=== PATIENT | male | born 1975 | race Caucasian/White ===

== ENCOUNTER 2018-03-25 13:48 | Observation (INO) ==
--- NOTE | 2018-03-25 13:58 | Emergency Department Note ---
ED Disposition Clinical Impression: Precordial chest pain, Bilateral flank pain Vomiting Qualifiers: Vomiting type: unspecified Vomiting Intractability: non-intractable Nausea presence: with nausea Qualified Code(s): R11.2 - Nausea with vomiting, unspecified Disposition: Still a Patient Condition on Discharge: Fair - Critical Care Critical Care Time: No Attestation: On , the high probability of a clinically significant, sudden or life threatening deterioration of the following system(s) required my full and direct attention, intervention and personal management. The time I documented below is in addition to time spent performing reported procedures but includes the following listed in this critical care notation. Medical Decision Making - Harry Inquiry Pt receiving controlled substance: No Vital Signs: 03/25/18 13:49 03/25/18 14:43 Temperature 97.4 F L Temperature Source Oral Pulse Rate [Left Radial] 89 88 Respiratory Rate 18 18 Blood Pressure [Right Arm] 126/72 123/64 Blood Pressure Mean [Right Arm] 90 83 Blood Pressure Source [Right Arm] Automatic Cuff Automatic Cuff Blood Pressure Position [Right Arm] Supine Sitting 02 Sat by Pulse Oximetry 99 98 Oxygen Delivery Method Room Air Room Air - Lab Data Lab Results 03/25/18 14:00: WBC 7.6, RBC 4.86, Hgb 12.6 L, Hct 41.5 L, MCV 85.3, MCH 26.0 L, MCHC 30.5 L, RDW 15.2, Plt Count 311, MPV 6.8 L, Neut % (Auto) 67.3, Lymph % (Auto) 24.4, [place] % (Auto) 6.0, Eos % (Auto) 1.3, Baso % (Auto) 1.0, Neut # (Auto) 5.1, Lymph # (Auto) 1.8, [place] # (Auto) 0.5, Eos # (Auto) 0.1, Baso # (Auto) 0.1 03/25/18 14:00: Sodium 126 L, Potassium 3.5, Chloride 110 H, Carbon Dioxide 29, Anion Gap -9.5 L, BUN 15, Creatinine 1.08, Estimated Creat Clear 134, Estimated GFR 74, Est GFR ( Amer) 90, Glucose 159 H, Calcium 8.7, Troponin I < 0.02 03/25/18 14:00: Lipase 204 03/25/18 14:00: Total Bilirubin 0.3, Direct Bilirubin 0.1, Indirect Bilirubin 0.2, AST 9 L, ALT 27, Alkaline Phosphatase 98, Total Protein 7.1, Albumin 3.2 L 03/25/18 14:45: Urine Color Yellow, Urine Appearance Clear, Urine pH 6.0, Ur Specific [place] 1.010, Urine Protein Negative, Urine Glucose (UA) 1+, Urine Ketones Negative, Urine Blood Negative, Urine Nitrate Negative, Urine Bilirubin Negative, Urine Urobilinogen 0.2, Ur Leukocyte Esterase Negative, Urine RBC None, Urine WBC Occasional, Ur Squamous Epith Cells None, Urine Bacteria None Result diagrams: 03/25/18 14:00 03/25/18 14:00 Orders (Tests/Meds): ORDERS Category Date Time Status CT abdomen pelvis wo con Stat Cat Scan 03/25/18 15:00 Taken Urinalysis and Microscopic Stat Lab 03/25/18 14:45 Ordered - Radiology Data #1 Image(s): Chest Image Reviewed: Yes I reviewed the patient's radiology image Preliminary Findings: Normal/NAD - CT Data CT Scan: Abdomen, Pelvis Time Received: 16:[address] Reviewed: Yes: I discussed the CT results w/the radiologist Findings Narrative: nothing acute - ECG Data Tracing #1 EKG interpreted by Aldair Max MD: Rhythm: sinus Rate: 86 [place]: normal Ectopy: none Conduction: normal ST Segment Changes: none T Wave Changes: none Q Waves: none No evidence of acute ischemia or injury Normal electrocardiogram - Physician Consults Physician Consulted: Aleida Time: 15:41 Reason -: Admission Comment/Response: Agrees to admit the patient to the hospital. We discussed the patient's clinical information, including history, exam, laboratory and radio logy results and ED course. Per hospital procedure, I will write temporary bridge inpatient orders on the patient. Specific orders requested by the admitting physician: Serial cardiac enzymes, cardiology consult General Adult HPI - General Chief complaint: Chest Pain Stated complaint: chest pain Time Seen by Provider: 03/25/18 13:58 Mode of Arrival: Ambulatory Limitations: No Limitations Description of Symptoms (Recalled from ER Triage Doc. by RN): Ems states that pt reported he has had chest pain for 2-3 days with pain radiating down both arms. He states that the pain is alot of pressure in nature and is constant. He reports that he has been throwing up today with pain in the side of his abdomen. Ems gave him 4 aspirin 81 mg, and nitro at 1339. - History of Present Illness HPI narrative: Poor historian. Brought in by ambulance from [facility] home with complaint of chest pain. Patient states that he has sternal chest pain and pain in both sides at the costal margins and flanks for 2 days. He said pain is constant. He has vomiting which started today. Slight shortness of breath. Mild abdominal pain. Denies cough or fever. Denies diarrhea or urinary symptoms. Says that he had the same symptoms a year ago and was told he had pneumonia. I have reviewed his hospital records and this is his first hospital visit here. States he thinks he had a cardiac cath a year or 2 ago at [facility]. Thinks it was negative. - Related Data Home Medications Medication Instructions Recorded Confirmed Aspirin [Aspirin 81mg chewable 81 mg PO DAILY 03/25/18 03/25/18 tab] Atorvastatin Calcium [Lipitor 40mg 40 mg PO DAILY 03/25/18 03/25/18 Tablet] Insulin Glargine,Hum.rec.anlog 100 unit SQ DAILY 03/25/18 03/25/18 [Lantus Insulin 100units/mL 10mL vial] Losartan Potassium [Cozaar] 100 mg PO DAILY 03/25/18 03/25/18 Metformin HCl [Metformin HCl ER] 500 mg PO DAILY 03/25/18 03/25/18 Pantoprazole Sodium [Protonix 40mg 40 mg PO DAILY 03/25/18 03/25/18 tablet] Pioglitazone HCl [Actos] 45 mg PO DAILY 03/25/18 03/25/18 Trazodone HCl 50 mg PO DAILY 03/25/18 03/25/18 hydrOXYzine pamoate [Vistaril] 50 mg PO DAILY 03/25/18 03/25/18 hydroCHLOROthiazide [HCTZ 25mg 25 mg PO DAILY 03/25/18 03/25/18 tab] Allergies Allergy/AdvReac Type Severity Reaction Status Date / Time acetaminophen [From Tylenol] Allergy Unknown Verified 03/25/18 14:08 azithromycin [From Zithromax] Allergy Unknown Verified 03/25/18 14:08 ibuprofen Allergy Unknown Verified 03/25/18 14:08 ketorolac [From Toradol] Allergy Unknown Verified 03/25/18 14:08 metronidazole [From Flagyl] Allergy Unknown Verified 03/25/18 14:08 Penicillins Allergy Unknown Verified 03/25/18 14:08 topiramate [From Topamax] Allergy Unknown Verified 03/25/18 14:08 tromethamine Allergy Unknown Verified 03/25/18 14:08 empagliflozin [From Glyxambi] Allergy Verified 03/25/18 14:08 linagliptin [From Glyxambi] Allergy Verified 03/25/18 14:08 [facility] History I have reviewed the patient's past medical history: Yes ROS Obtained: Yes All systems reviewed & no additional complaints - Constitutional Constitutional: Denies fever(s) - Cardiovascular Cardiovascular: Reports chest pain - Respiratory Respiratory: No cough, Yes dyspnea - Gastrointestinal Gastrointestingal: Reports: abdominal pain, vomiting. Denies: diarrhea - Genitourinary Male Genitourinary: Denies difficulty urinating Physical Exam - General General appearance: alert, in no apparent distress - Head Head exam: atraumatic, normocephalic, normal inspection - Eye Eye exam: Present: normal appearance, PERRL, EOMI - ENT ENT exam: Present: mucous membranes moist - Neck Neck exam: Present: normal inspection, trachea midline - Chest Chest inspection: Present: normal inspection, symmetric chest wall rise, tenderness (Sternal) - Respiratory Respiratory exam: Present: normal lung sounds bilaterally. Absent: respiratory distress - Cardiovascular Cardiovascular exam: Present: regular rate, normal rhythm, normal heart sounds. Absent: JVD - Abdominal Exam Abdominal exam: Present: soft, tenderness, normal bowel sounds. Absent: d istention, guarding Abdominal tenderness: Present: diffuse, mild - Extremities Exam Extremities exam: Present: normal inspection, other (Trace pretibial edema). Absent: calf tenderness - Neurological Exam Neurological exam: Present: alert - Psychiatric Psychiatric exam: Present: normal affect, normal mood - Skin Skin exam: Present: warm, dry, intact, normal color
[2018-03-25 14:19] LABS: Basophils # 0.1 K/mm3 (0-0.2); Eosinophils # 0.1 K/mm3 (0.0-0.4); Eosinophils % 1.3 % (0.1-12.0); Hematocrit 41.5 % (42.0-52.0); Hemoglobin 12.6 g/dL (14.1-18.0); Lymphocytes # 1.8 K/mm3 (0.7-4.5); Lymphocytes % 24.4 % (10-50); Mean Corpuscular HGB Conc 30.5 g/dL (31.8-35.4); Mean Corpuscular Volume 85.3 fl (80-94); Mean Platelet Volume 6.8 fl (7.4-10.4); Monocytes # 0.5 K/mm3 (0.1-1.0); Neutrophils # 5.1 K/mm3 (1.8-7.8); Neutrophils % 67.3 % (37.0-80.0); Platelet Count 311 K/mm3 (142-424); Red Blood Count 4.86 M/mm3 (4.60-6.20); Red Cell Distribution Width 15.2 % (11.5-17.5); White Blood Count 7.6 K/mm3 (4.8-10.8)
[2018-03-25 14:49] LABS: Anion Gap -9.5 mEq/L (5-15); Blood Urea Nitrogen 15 mg/dL (7-18); Calcium 8.7 mg/dL (8.5-10.1); Carbon Dioxide 29 mmol/L (21.0-32.0); Chloride 110 mmol/L (98-107); Glucose 159 mg/dL (74-106); Potassium 3.5 mmoL/L (3.5-5.1); Sodium 126 mmol/L (136-145)
[2018-03-25 14:50] LABS: Albumin Level 3.2 gm/dL (3.4-5.0); Bilirubin,Direct 0.1 mg/dL (0.0-0.2); Bilirubin,Indirect 0.2 mg/dL (0.0-0.9); Bilirubin,Total 0.3 mg/dL (0.2-1.0); Total Protein,Serum 7.1 gm/dL (6.4-8.2)
[2018-03-25 14:52] LABS: Microscopic, Urine URINE MICROSCOPIC (MICROSCOPIC)
[2018-03-25 14:56] LABS: Appearance,Urine CLEAR (Clear); Bilirubin,Urine Negative (Negative); Blood, Urine Negative (Negative); Color,Urine YELLOW (Yellow); Glucose,Urine (UA) 1+ (Negative); Ketones,Urine Negative (Negative); Leukocyte Esterase,Urine Negative (Negative); Protein,Urine Negative (Negative); Urobilinogen,Urine 0.2 EU/dl (0.2)
[2018-03-25 15:07] LABS: WBC,Urine Occasional #/hpf (0-3)
--- NOTE | 2018-03-25 20:52 | History & Physical Report ---
*Admission Date: 03/25/18 *Chief complaint: chest pain *History of present illness: this iddm was seen at [facility] this afternoon -pt has had chest pain described to me as sharp with rad to both upper ext over the last 2 days - pt was sent to ed for eval-escription of Symptoms (Recalled from ER Triage Doc. by RN): Ems states that pt reported he has had chest pain for 2-3 days with pain radiating down both arms. He states that the pain is alot of pressure in nature and is constant. He reports that he has been throwing up today with pain in the side of his abdomen. Ems gave him 4 aspirin 81 mg, and nitro at 1339. - History of Present Illness HPI narrative: Poor historian. Brought in by ambulance from [facility] with complaint of chest pain. Patient states that he has sternal chest pain and pain in both sides at the costal margins and flanks for 2 days. He said pain is constant. He has vomiting which started today. Slight shortness of breath. Mild abdominal pain. Denies cough or fever. Denies diarrhea or urinary symptoms. Says that he had the same symptoms a year ago and was told he had pneumonia. I have reviewed his hospital records and this is his first hospital visit here. States he thinks he had a cardiac cath a year or 2 ago at [facility]. Thinks it was negative. pt was admitted for card eval [facility] History I have reviewed the patient's past medical history: Yes Medical History: Reports:: Diabetes Mellitus Type 2, Hyperlipidemia, Hypertension - *Social History Smoking Status: Never smoker Tobacco Type: cigarettes Alcohol Intake: never Occupational Status: disabled Housing: assisted living facility Household Members: other - Psychiatric History Expresses thoughts of harming self/others: None Suicide Plan Description: No Plan *Family Hx:: Unable to obtain Review of Systems - Review of Systems Review of systems:: pertinent systems reviewed and negative unless documented below - Constitutional Denies headache(s) - Eyes Denies change in vision - ENT Denies sore throat - *Cardiovascular Reports chest pain, Denies leg swelling - *Respiratory Denies cough - *Gastrointestinal Denies abdominal pain - *Genitourinary Denies blood in urine - *Musculoskeletal Denies joint pain - Integumentary/Breasts Denies rash - *Neurologic Denies seizure-like activity - Psychiatric Denies anxiety Meds Home Medications Medication Instructions Recorded Confirmed Type Albuterol Sulfate [Albuterol HFA 1 puff IH Q4-6H 03/25/18 03/25/18 History Inhaler] Aspirin [Aspirin 81mg chewable 81 mg PO DAILY 03/25/18 03/25/18 History tab] Atorvastatin Calcium [Lipitor 40mg 40 mg PO DAILY 03/25/18 03/25/18 History Tablet] Cholecalciferol (Vitamin D3) 4,000 unit PO DAILY 03/25/18 03/25/18 History [Vitamin D3] Fluticasone/Salmeterol [Advair 1 puff IH BID 03/25/18 03/25/18 History 500/50mcg diskus] Insulin Aspart [Novolog Flexpen] 40 unit SQ TID 03/25/18 03/25/18 History Insulin Glargine,Hum.rec.anlog 75 unit SQ HS 03/25/18 03/25/18 History [Lantus Insulin 100units/mL 10mL vial] Loratadine/Pseudoephedrine 1 each PO DAILY 03/25/18 03/25/18 History [Loratadine-D 24Hr Tablet] Losartan Potassium [Cozaar] 100 mg PO DAILY 03/25/18 03/25/18 History Metformin HCl [Metformin HCl ER] 1,000 mg PO BID 03/25/18 03/25/18 History Metoprolol Succinate [Toprol XL 50 mg PO DAILY 03/25/18 03/25/18 History 50mg Tablet] Montelukast Sodium [Montelukast 10 mg PO HS 03/25/18 03/25/18 History 10mg Tab] Pantoprazole Sodium [Protonix 40mg 40 mg PO DAILY 03/25/18 03/25/18 History tablet] Pioglitazone HCl [Actos] 45 mg PO DAILY 03/25/18 03/25/18 History Trazodone HCl 50 mg PO DAILY 03/25/18 03/25/18 History hydrOXYzine pamoate [Vistaril] 25 mg PO TID PRN 03/25/18 03/25/18 History hydroCHLOROthiazide [HCTZ 25mg 25 mg PO DAILY 03/25/18 03/25/18 History tab] Allergies Allergy/AdvReac Type Severity Reaction Status Date / Time acetaminophen [From Tylenol] Allergy Unknown Verified 03/25/18 14:08 azithromycin [From Zithromax] Allergy Unknown Verified 03/25/18 14:08 ibuprofen Allergy Unknown Verified 03/25/18 14:08 ketorolac [From Toradol] Allergy Unknown Verified 03/25/18 14:08 metronidazole [From Flagyl] Allergy Unknown Verified 03/25/18 14:08 Penicillins Allergy Unknown Verified 03/25/18 14:08 topiramate [From Topamax] Allergy Unknown Verified 03/25/18 14:08 tromethamine Allergy Unknown Verified 03/25/18 14:08 empagliflozin [From Glyxambi] Allergy Verified 03/25/18 14:08 linagliptin [From Glyxambi] Allergy Verified 03/25/18 14:08 Exam Vital signs and Labs for Last 24 Hours: Temp Pulse Resp BP Pulse Ox 98.5 F 82 18 141/88 H 100 03/25/18 16:57 03/25/18 16:57 03/25/18 16:57 03/25/18 16:57 03/25/18 16:57 Laboratory Results - last 24 hr 03/25/18 14:00: WBC 7.6, RBC 4.86, Hgb 12.6 L, Hct 41.5 L, MCV 85.3, MCH 26.0 L, MCHC 30.5 L, RDW 15.2, Plt Count 311, MPV 6.8 L, Neut % (Auto) 67.3, Lymph % (Auto) 24.4, [place] % (Auto) 6.0, Eos % (Auto) 1.3, Baso % (Auto) 1.0, Neut # (Auto) 5.1, Lymph # (Auto) 1.8, [place] # (Auto) 0.5, Eos # (Auto) 0.1, Baso # (Auto) 0.1 03/25/18 14:00: Sodium 126 L, Potassium 3.5, Chloride 110 H, Carbon Dioxide 29, Anion Gap -9.5 L, BUN 15, Creatinine 1.08, Estimated Creat Clear 134, Estimated GFR 74, Est GFR ( Amer) 90, Glucose 159 H, Calcium 8.7, Troponin I < 0.02 03/25/18 14:00: Lipase 204 03/25/18 14:00: Total Bilirubin 0.3, Direct Bilirubin 0.1, Indirect Bilirubin 0.2, AST 9 L, ALT 27, Alkaline Phosphatase 98, Total Protein 7.1, Albumin 3.2 L 03/25/18 14:45: Urine Color Yellow, Urine Appearance Clear, Urine pH 6.0, Ur Specific [place] 1.010, Urine Protein Negative, Urine Glucose (UA) 1+, Urine Ketones Negative, Urine Blood Negative, Urine Nitrate Negative, Urine Bilirubin Negative, Urine Urobilinogen 0.2, Ur Leukocyte Esterase Negative, Urine RBC None, Urine WBC Occasional, Ur Squamous Epith Cells None, Urine Bacteria None 03/25/18 16:29: POC Glucose 118 H 03/25/18 19:15: Troponin I < 0.02 I & O for Last 24 hours: Intake & Output 03/23/18 03/24/18 03/25/18 03/26/18 11:59 11:59 11:59 11:59 Intake Total 480 / 480 Balance 480 / 480 Weight 295 lb 8 oz - Constitutional no acute distress, obese - *Routine HEENT Exam Head: Present: normocephalic Eye: Present: EOMI, PERRL ENT: Present: mucous membranes dry - *Routine Neck Exam Present: supple - *Routine Respiratory Exam Present: CTA bilaterally - *Routine Cardiovascular Exam Present: RRR, murmur - *Routine Abdominal Exam Present: soft - *Routine Extremities Exam Present: cyanosis - *Routine Skin Exam Present: intact - *Routine Neurological Exam Present: alert, oriented X3, CN II-XII intact - Routine Psychiatric Exam Present: normal affect Assessment and Plan (1) Obesity Current visit: Yes Status: Acute Category: Medical Code(s): E66.9 - Obesity, unspecified (2) Precordial chest pain Current visit: Yes Status: Acute Category: Medical Code(s): R07.2 - Precordial pain (3) Diabetes mellitus, insulin dependent (IDDM), controlled Current visit: Yes Status: Acute Category: Medical Code(s): E11.9 - Type 2 diabetes mellitus without complications; Z79.4 - MCFP (current) use of insulin
[2018-03-26 06:56] LABS: Anion Gap 10.1 mEq/L (5-15); Calcium 8.7 mg/dL (8.5-10.1); Potassium 4.1 mmoL/L (3.5-5.1)
--- NOTE | 2018-03-26 07:26 | Pharmacy Consult Notes ---
[facility] Pharmacy VTE Monitoring - Patient Demographics Admission date: 03/25/18 Report Date: 03/26/18 Time: 07:26 Allergies/Adverse Reactions: Patient Allergies acetaminophen [From Tylenol] Allergy (Unknown, Verified 03/25/18 14:08) azithromycin [From Zithromax] Allergy (Unknown, Verified 03/25/18 14:08) ibuprofen Allergy (Unknown, Verified 03/25/18 14:08) ketorolac [From Toradol] Allergy (Unknown, Verified 03/25/18 14:08) metronidazole [From Flagyl] Allergy (Unknown, Verified 03/25/18 14:08) Penicillins Allergy (Unknown, Verified 03/25/18 14:08) topiramate [From Topamax] Allergy (Unknown, Verified 03/25/18 14:08) tromethamine Allergy (Unknown, Verified 03/25/18 14:08) empagliflozin [From Glyxambi] Allergy (Verified 03/25/18 14:08) linagliptin [From Glyxambi] Allergy (Verified 03/25/18 14:08) Height: 1.75 m Weight: 134.037 kg Patient Problems: Current Active Problems Precordial chest pain (Acute) Vomiting (Acute) Bilateral flank pain (Acute) Obesity (Acute) Diabetes mellitus, insulin dependent (IDDM), controlled (Acute) - VTE Risk Labs: VTE Related Lab Results Hgb 12.6 g/dL (14.1-18.0) L 03/25/18 14:00 Hct 41.5 % (42.0-52.0) L 03/25/18 14:00 Plt Count 311 K/mm3 (142-424) 03/25/18 14:00 BUN 17 mg/dL (7-18) 03/26/18 06:45 Creatinine 0.97 mg/dL (0.70-1.30) 03/26/18 06:45 Estimated Creat Clear 97 mL/min (50-200) 03/26/18 06:45 Was VTE Risk Assessment Performed: Yes VTE Score: 3 VTE Risk Level: Low Risk - Prophylaxis VTE Prophylaxis Ordered?: Yes Types of VTE Prophylaxis: TEDS Knee High Location of Applied Device: Bilateral Lower Extremeties - VTE Diagnosis Confirmed Treatment or plan recommended: Continue Current Treatment
--- NOTE | 2018-03-26 07:44 | Consult Report ---
Addendum entered and electronically signed by KUNAL De Los Santos 03/26/18 15:07: Cardiac cath, 01/2017, showed no CAD. GXT today, walked for just over 3 min to 75% of target HR without chest pain, ST segment changes or arrhyhtmias. Preliminary echo shows normal LVEF without signficant valve abnormalities. Ok to discharge home from cardiology standpoint. Original Note: History of Present Illness Consult date: 03/26/18 Requesting physician: Claus Shin Consult reason: chest pain Chief complaint: Chest pain, palpitations Additional Medical History:: 1. Diabetes mellitus, insulin requiring 2. Hypertension 3. Hyperlipidemia 4. History of cardiac catheterization, normal LVEF, no evidence of CAD, 01/2017. [facility], Dr. Mahesh Armenta 5. Obesity History of present illness: 43-year-old white male resident of [facility] admitted for recurrent episode of chest discomfort. He describes it as a sharp pressure sensation that occurs while walking and feels as if his heart is racing. Symptoms resolved when he lies down. Due to recurrent nature of the symptoms with progression over the last couple of days patient was admitted for further evaluation. Troponins have returned normal. EKG is sinus without acute ST segment changes. He does have some early repolarization changes. Reportedly had same symptoms approximately 1-2 years ago for which he underwent cardiac catheterization and reportedly was normal. [facility] History Medical History: Reports:: Diabetes Mellitus Type 2, Hyperlipidemia, Hypertension - *Social History Smoking Status: Never smoker Tobacco Type: cigarettes Alcohol Intake: never Occupational Status: disabled Housing: assisted living facility Household Members: other - Psychiatric History Expresses thoughts of harming self/others: None Suicide Plan Description: No Plan *Family Hx:: Unable to obtain Meds Home Medications Medication Instructions Recorded Confirmed Type Albuterol Sulfate [Albuterol HFA 1 puff IH Q4HP PRN 03/25/18 03/26/18 History Inhaler] Aspirin [Aspirin 81mg chewable 81 mg PO DAILY 03/25/18 03/25/18 History tab] Atorvastatin Calcium [Lipitor 40mg 40 mg PO DAILY 03/25/18 03/25/18 History Tablet] Cholecalciferol (Vitamin D3) 4,000 unit PO DAILY 03/25/18 03/25/18 History [Vitamin D3] Insulin Aspart [Novolog Flexpen] 40 unit SQ TID 03/25/18 03/25/18 History Insulin Glargine,Hum.rec.anlog 75 unit SQ HS 03/25/18 03/25/18 History [Lantus Insulin 100units/mL 10mL vial] Losartan Potassium [Cozaar] 100 mg PO DAILY 03/25/18 03/25/18 History Metformin HCl [Metformin HCl ER] 1,000 mg PO BID 03/25/18 03/25/18 History Metoprolol Succinate [Toprol XL 50 mg PO DAILY 03/25/18 03/25/18 History 50mg Tablet] Montelukast Sodium [Montelukast 10 mg PO HS 03/25/18 03/25/18 History 10mg Tab] Pantoprazole Sodium [Protonix 40mg 40 mg PO BID 03/25/18 03/26/18 History tablet] Pioglitazone HCl [Actos] 45 mg PO DAILY 03/25/18 03/25/18 History Trazodone HCl 50 mg PO HSP PRN 03/25/18 03/26/18 History hydrOXYzine pamoate [Vistaril] 25 mg PO TID PRN 03/25/18 03/25/18 History hydroCHLOROthiazide [HCTZ 25mg 25 mg PO DAILY 03/25/18 03/25/18 History tab] Dextrose [Glutose 37.5gm Oral Gel] 1 tube MC NEEDED PRN 03/26/18 03/26/18 History Fluticasone/Salmeterol 1 puff IH BID 03/26/18 03/26/18 History [Fluticasone/Salmeterol 250/50mcg diskus] Loratadine [Claritin] 10 mg PO DAILY 03/26/18 03/26/18 History Allergies Allergy/AdvReac Type Severity Reaction Status Date / Time acetaminophen [From Tylenol] Allergy Unknown Verified 03/25/18 14:08 azithromycin [From Zithromax] Allergy Unknown Verified 03/25/18 14:08 ibuprofen Allergy Unknown Verified 03/25/18 14:08 ketorolac [From Toradol] Allergy Unknown Verified 03/25/18 14:08 metronidazole [From Flagyl] Allergy Unknown Verified 03/25/18 14:08 Penicillins Allergy Unknown Verified 03/25/18 14:08 topiramate [From Topamax] Allergy Unknown Verified 03/25/18 14:08 tromethamine Allergy Unknown Verified 03/25/18 14:08 empagliflozin [From Glyxambi] Allergy Verified 03/25/18 14:08 linagliptin [From Glyxambi] Allergy Verified 03/25/18 14:08 Review of Systems - *Cardiovascular Reports chest pain, Reports shortness of breath with activity - *Respiratory Reports shortness of breath with activity - *Gastrointestinal Denies abdominal pain - *Genitourinary Denies blood in urine - *Musculoskeletal Denies joint pain, Denies back pain - *Neurologic Denies seizure-like activity, Denies headache(s) Exam Vital signs and Labs for Last 24 Hours: Temp Pulse Resp BP Pulse Ox 98.0 F 77 16 122/67 100 03/26/18 04:00 03/26/18 04:00 03/26/18 04:00 03/26/18 04:00 03/26/18 04:00 Laboratory Results - last 24 hr 03/25/18 14:00: WBC 7.6, RBC 4.86, Hgb 12.6 L, Hct 41.5 L, MCV 85.3, MCH 26.0 L, MCHC 30.5 L, RDW 15.2, Plt Count 311, MPV 6.8 L, Neut % (Auto) 67.3, Lymph % (Auto) 24.4, [place] % (Auto) 6.0, Eos % (Auto) 1.3, Baso % (Auto) 1.0, Neut # (Auto) 5.1, Lymph # (Auto) 1.8, [place] # (Auto) 0.5, Eos # (Auto) 0.1, Baso # (Auto) 0.1 03/25/18 14:00: Sodium 126 L, Potassium 3.5, Chloride 110 H, Carbon Dioxide 29, Anion Gap -9.5 L, BUN 15, Creatinine 1.08, Estimated Creat Clear 134, Estimated GFR 74, Est GFR ( Amer) 90, Glucose 159 H, Calcium 8.7, Troponin I < 0.02 03/25/18 14:00: Lipase 204 03/25/18 14:00: Total Bilirubin 0.3, Direct Bilirubin 0.1, Indirect Bilirubin 0.2, AST 9 L, ALT 27, Alkaline Phosphatase 98, Total Protein 7.1, Albumin 3.2 L 03/25/18 14:45: Urine Color Yellow, Urine Appearance Clear, Urine pH 6.0, Ur Specific [place] 1.010, Urine Protein Negative, Urine Glucose (UA) 1+, Urine Ketones Negative, Urine Blood Negative, Urine Nitrate Negative, Urine Bilirubin Negative, Urine Urobilinogen 0.2, Ur Leukocyte Esterase Negative, Urine RBC None, Urine WBC Occasional, Ur Squamous Epith Cells None, Urine Bacteria None 03/25/18 16:29: POC Glucose 118 H 03/25/18 19:15: Troponin I < 0.02 03/25/18 20:35: POC Glucose 214 H 03/25/18 22:16: Troponin I < 0.02 03/26/18 06:22: POC Glucose 164 H 03/26/18 06:45: Sodium 137, Potassium 4.1, Chloride 100, Carbon Dioxide 31, Anion Gap 10.1, BUN 17, Creatinine 0.97, Estimated Creat Clear 97, Estimated GFR 84, Est GFR ( Amer) 102, Glucose 177 H, Calcium 8.7 I & O for Last 24 hours: Intake & Output 03/23/18 03/24/18 03/25/18 03/26/18 11:59 11:59 11:59 11:59 Intake Total 730 / 730 Balance 730 / 730 Weight 295 lb 8 oz - *Routine Neck Exam Present: supple. Absent: JVD, carotid bruit - *Routine Respiratory Exam Present: CTA bilaterally. Absent: accessory muscle use, rales, rhonchi, wheezes - *Routine Cardiovascular Exam Present: RRR. Absent: murmur, gallop, rubs - *Routine Abdominal Exam Present: soft. Absent: tenderness, distended, guarding - *Routine Extremities Exam Present: edema. Absent: calf tenderness - *Routine Neurological Exam Present: alert, oriented X3, moving all extremities Assessment and Plan (1) Precordial chest pain Current visit: Yes Status: Acute Category: Medical Code(s): R07.2 - Precordial pain (2) Obesity Current visit: Yes Status: Acute Category: Medical Code(s): E66.9 - Obesity, unspecified (3) Diabetes mellitus, insulin dependent (IDDM), controlled Current visit: Yes Status: Acute Category: Medical Code(s): E11.9 - Type 2 diabetes mellitus without complications; Z79.4 - detention (current) use of insulin (4) Hypertension Current visit: Yes Status: Acute Category: Medical Code(s): I10 - Essential (primary) hypertension - Assessment and plan all Dx Assessment and Plan for all problems:: 1. We will try to obtain recent cardiac catheterization results from [facility]. 2. Patient relates symptoms of palpitations when ambulating along with the chest discomfort. Since cardiac catheter report last year shows no CAD with normal LVEF, will proceed with routine Steve protocol stress test with no imaging to assess for exercise-induced arrhythmias.. 3. Will obtain an echocardiogram to evaluate left ventricular size and valve status. 4. Further recommendations to follow.
--- NOTE | 2018-03-26 13:33 | Discharge Summary ---
General - General Admission date:: 03/25/18 Discharge date: 03/26/18 HPI HPI: this iddm was seen at intermediate this afternoon -pt has had chest pain described to me as sharp with rad to both upper ext over the last 2 days - pt was sent to ed for eval-escription of Symptoms (Recalled from ER Triage Doc. by RN): Ems states that pt reported he has had chest pain for 2-3 days with pain radiating down both arms. He states that the pain is alot of pressure in nature and is constant. He reports that he has been throwing up today with pain in the side of his abdomen. Ems gave him 4 aspirin 81 mg, and nitro at 1339. - History of Present Illness HPI narrative: Poor historian. Brought in by ambulance from [facility] with complaint of chest pain. Patient states that he has sternal chest pain and pain in both sides at the costal margins and flanks for 2 days. He said pain is constant. He has vomiting which started today. Slight shortness of breath. Mild abdominal pain. Denies cough or fever. Denies diarrhea or urinary symptoms. Says that he had the same symptoms a year ago and was told he had pneumonia. I have reviewed his hospital records and this is his first hospital visit here. States he thinks he had a cardiac cath a year or 2 ago at [facility]. Thinks it was negative. pt was admitted for card eval Hospital Course Hospital Course: CT abdomen chest normal Chest x-ray normal Cardiology consult see note Stress test nothing abnormal. We will discharge back to [facility] today with a follow-up with cardiology and Dr. Shin. Objective Vital signs: Temp Pulse Resp BP Pulse Ox 97.7 F 90 20 124/83 96 03/26/18 11:34 03/26/18 13:13 03/26/18 11:34 03/26/18 11:34 03/26/18 11:34 no acute distress - *Routine HEENT Exam Head: Present: normocephalic Eye: Present: PERRL ENT: Present: mucous membranes moist - *Routine Neck Exam Present: supple - *Routine Respiratory Exam Present: CTA bilaterally - *Routine Cardiovascular Exam Present: RRR - *Routine Abdominal Exam Present: soft, normoactive bowel sounds - *Routine Extremities Exam Present: full ROM - *Routine Skin Exam Present: intact - *Routine Neurological Exam Present: alert, oriented X3 - Routine Psychiatric Exam Present: normal affect Results Labs on day of discharge: Labs from last 24 hours 03/26/18 03/26/18 03/26/18 11:17 06:45 06:22 WBC RBC Hgb Hct MCV MCH MCHC RDW Plt Count MPV Neut % (Auto) Lymph % (Auto) [place] % (Auto) Eos % (Auto) Baso % (Auto) Neut # (Auto) Lymph # (Auto) [place] # (Auto) Eos # (Auto) Baso # (Auto) Sodium 137 Potassium 4.1 Chloride 100 Carbon Dioxide 31 Anion Gap 10.1 BUN 17 Creatinine 0.97 Estimated Creat Clear 97 Estimated GFR 84 Est GFR ( Amer) 102 Glucose 177 H POC Glucose 192 H 164 H Calcium 8.7 Total Bilirubin Direct Bilirubin Indirect Bilirubin AST ALT Alkaline Phosphatase Troponin I Total Protein Albumin Lipase Urine Color Urine Appearance Urine pH Ur Specific [place] Urine Protein Urine Glucose (UA) Urine Ketones Urine Blood Urine Nitrate Urine Bilirubin Urine Urobilinogen Ur Leukocyte Esterase Urine RBC Urine WBC Ur Squamous Epith Cells Urine Bacteria 03/25/18 03/25/18 03/25/18 22:16 20:35 19:15 WBC RBC Hgb Hct MCV MCH MCHC RDW Plt Count MPV Neut % (Auto) Lymph % (Auto) [place] % (Auto) Eos % (Auto) Baso % (Auto) Neut # (Auto) Lymph # (Auto) [place] # (Auto) Eos # (Auto) Baso # (Auto) Sodium Potassium Chloride Carbon Dioxide Anion Gap BUN Creatinine Estimated Creat Clear Estimated GFR Est GFR ( Amer) Glucose POC Glucose 214 H Calcium Total Bilirubin Direct Bilirubin Indirect Bilirubin AST ALT Alkaline Phosphatase Troponin I < 0.02 < 0.02 Total Protein Albumin Lipase Urine Color Urine Appearance Urine pH Ur Specific [place] Urine Protein Urine Glucose (UA) Urine Ketones Urine Blood Urine Nitrate Urine Bilirubin Urine Urobilinogen Ur Leukocyte Esterase Urine RBC Urine WBC Ur Squamous Epith Cells Urine Bacteria 03/25/18 03/25/18 03/25/18 16:29 14:45 14:00 WBC RBC Hgb Hct MCV MCH MCHC RDW Plt Count MPV Neut % (Auto) Lymph % (Auto) [place] % (Auto) Eos % (Auto) Baso % (Auto) Neut # (Auto) Lymph # (Auto) [place] # (Auto) Eos # (Auto) Baso # (Auto) Sodium Potassium Chloride Carbon Dioxide Anion Gap BUN Creatinine Estimated Creat Clear Estimated GFR Est GFR ( Amer) Glucose POC Glucose 118 H Calcium Total Bilirubin 0.3 Direct Bilirubin 0.1 Indirect Bilirubin 0.2 AST 9 L ALT 27 Alkaline Phosphatase 98 Troponin I Total Protein 7.1 Albumin 3.2 L Lipase Urine Color Yellow Urine Appearance Clear Urine pH 6.0 Ur Specific [place] 1.010 Urine Protein Negative Urine Glucose (UA) 1+ Urine Ketones Negative Urine Blood Negative Urine Nitrate Negative Urine Bilirubin Negative Urine Urobilinogen 0.2 Ur Leukocyte Esterase Negative Urine RBC None Urine WBC Occasional Ur Squamous Epith Cells None Urine Bacteria None 03/25/18 03/25/18 03/25/18 14:00 14:00 14:00 WBC 7.6 RBC 4.86 Hgb 12.6 L Hct 41.5 L MCV 85.3 MCH 26.0 L MCHC 30.5 L RDW 15.2 Plt Count 311 MPV 6.8 L Neut % (Auto) 67.3 Lymph % (Auto) 24.4 [place] % (Auto) 6.0 Eos % (Auto) 1.3 Baso % (Auto) 1.0 Neut # (Auto) 5.1 Lymph # (Auto) 1.8 [place] # (Auto) 0.5 Eos # (Auto) 0.1 Baso # (Auto) 0.1 Sodium 126 L Potassium 3.5 Chloride 110 H Carbon Dioxide 29 Anion Gap -9.5 L BUN 15 Creatinine 1.08 Estimated Creat Clear 134 Estimated GFR 74 Est GFR ( Amer) 90 Glucose 159 H POC Glucose Calcium 8.7 Total Bilirubin Direct Bilirubin Indirect Bilirubin AST ALT Alkaline Phosphatase Troponin I < 0.02 Total Protein Albumin Lipase 204 Urine Color Urine Appearance Urine pH Ur Specific [place] Urine Protein Urine Glucose (UA) Urine Ketones Urine Blood Urine Nitrate Urine Bilirubin Urine Urobilinogen Ur Leukocyte Esterase Urine RBC Urine WBC Ur Squamous Epith Cells Urine Bacteria - Additional Comments rounded with kristy all orders per kristy DS: Diagnosis - Discharge Diagnosis (1) Precordial chest pain Status: Acute (2) Obesity Status: Acute (3) Diabetes mellitus, insulin dependent (IDDM), controlled Status: Acute (4) Hypertension Status: Acute Discharge Plan - Patient Discharge Instructions ACTIVITY: Continue current activity DIET: continue same diet Patient Instructions: DI for Chest Pain - Follow up Plan Follow up with: Claus Shin MD [Primary Care Provider] - 1 week Jae Mancera MD [Staff Physician] - 1 week Disposition: Home, Self-Long Term Medications: Home Medications Medication Instructions Recorded Confirmed Type Albuterol Sulfate [Albuterol HFA 1 puff IH Q4HP PRN 03/25/18 03/26/18 History Inhaler] Aspirin [Aspirin 81mg chewable 81 mg PO DAILY 03/25/18 03/25/18 History tab] Atorvastatin Calcium [Lipitor 40mg 40 mg PO DAILY 03/25/18 03/25/18 History Tablet] Cholecalciferol (Vitamin D3) 4,000 unit PO DAILY 03/25/18 03/25/18 History [Vitamin D3] Insulin Aspart [Novolog Flexpen] 40 unit SQ TID 03/25/18 03/25/18 History Insulin Glargine,Hum.rec.anlog 75 unit SQ HS 03/25/18 03/25/18 History [Lantus Insulin 100units/mL 10mL vial] Losartan Potassium [Cozaar] 100 mg PO DAILY 03/25/18 03/25/18 History Metformin HCl [Metformin HCl ER] 1,000 mg PO BID 03/25/18 03/25/18 History Metoprolol Succinate [Toprol XL 50 mg PO DAILY 03/25/18 03/25/18 History 50mg Tablet] Montelukast Sodium [Montelukast 10 mg PO HS 03/25/18 03/25/18 History 10mg Tab] Pantoprazole Sodium [Protonix 40mg 40 mg PO BID 03/25/18 03/26/18 History tablet] Pioglitazone HCl [Actos] 45 mg PO DAILY 03/25/18 03/25/18 History Trazodone HCl 50 mg PO HSP PRN 03/25/18 03/26/18 History hydrOXYzine pamoate [Vistaril] 25 mg PO TID PRN 03/25/18 03/25/18 History hydroCHLOROthiazide [HCTZ 25mg 25 mg PO DAILY 03/25/18 03/25/18 History tab] Dextrose [Glutose 37.5gm Oral Gel] 1 tube MC NEEDED PRN 03/26/18 03/26/18 History Fluticasone/Salmeterol 1 puff IH BID 03/26/18 03/26/18 History [Fluticasone/Salmeterol 250/50mcg diskus] Loratadine [Claritin] 10 mg PO DAILY 03/26/18 03/26/18 History Prescriptions/Medication Reconciliation: Continue Atorvastatin Calcium [Lipitor 40mg Tablet] 40 mg PO DAILY Trazodone HCl 50 mg PO HSP PRN PRN Reason: Sleep Insulin Glargine,Hum.rec.anlog [Lantus Insulin 100units/mL 10mL vial] 75 unit SQ HS hydrOXYzine pamoate [Vistaril] 25 mg PO TID PRN PRN Reason: Anxiety Pioglitazone HCl [Actos] 45 mg PO DAILY Pantoprazole Sodium [Protonix 40mg tablet] 40 mg PO BID Metformin HCl [Metformin HCl ER] 1,000 mg PO BID Losartan Potassium [Cozaar] 100 mg PO DAILY Metoprolol Succinate [Toprol XL 50mg Tablet] 50 mg PO DAILY Montelukast Sodium [Montelukast 10mg Tab] 10 mg PO HS Albuterol Sulfate [Albuterol HFA Inhaler] 1 puff IH Q4HP PRN PRN Reason: SHORTNESS OF AIR Cholecalciferol (Vitamin D3) [Vitamin D3] 4,000 unit PO DAILY Fluticasone/Salmeterol [Fluticasone/Salmeterol 250/50mcg diskus] 1 puff IH BID Dextrose [Glutose 37.5gm Oral Gel] 1 tube MC NEEDED PRN PRN Reason: LOW BLOOD SUGAR hydroCHLOROthiazide [HCTZ 25mg tab] 25 mg PO DAILY Aspirin [Aspirin 81mg chewable tab] 81 mg PO DAILY Insulin Aspart [Novolog Flexpen] 40 unit SQ TID Loratadine [Claritin] 10 mg PO DAILY
--- NOTE | 2018-03-26 15:28 | Cardiology Report ---
PROCEDURE: 2-D M-mode and color Doppler study INDICATIONS FOR THE TEST: Chest pain+ COPD Heart Murmur Tobacco Smoking Palpitations Fatigue Syncope Edema Hypertension+Diabetes Mellitus+ Rheumatic Fever SOB+RIOS Obesity+Hyperlipidemia+ Family History HD Additional History PATIENT INFORMATION HEIGHT: 69 WEIGHT:295 GENDER: Male B/P:141/88 2-D/M-MODE INTERPRETATION: 2-D MEASUREMENTS OBSERVED VALUES IN CMS Right Ventricular Dimension (RVDd) 1.6 Interventricular Septum (Thickness)(IVsd) 1.5 Left Ventricular Internal Dimensions(LVIDd) 4.8 Left Ventricular Posterior Wall (Thickness)(LVPWd) 0.8 Aortic Root 3.6 Aortic Cusp Separation 2.2 Left Atrial Dimensions (LAD) 4.3 2D 1. Technically difficult study because of the patient's factor and poor acoustic windows, repeat study with Definity contrast is recommended. 2. The left atrium is mildly enlarged, left ventricle is normal size, mild concentric left ventricular hypertrophy, probably preserved left ventricular systolic function, visually estimated ejection fraction is 55%, endocardial surfaces are very poorly visualized. 3. The right atrium and right ventricle are normal size and contractility. 4. The aortic valve is minimally thickened and fibrosed. 5. The pulmonic valve is poorly visualized. 6. No significant pericardial effusion noted. DOPPLER INTERROGATION: Doppler interrogation of the aortic, mitral and tricuspid valvular presence of mild mitral and tricuspid regurgitation, tricuspid regurgitation jet velocity is inadequate for calculation of the right ventricular systolic pressure, grade 1 diastolic dysfunction seen with tissue Doppler evidence of raised left atrial pressure. CONCLUSION: 1. Technically difficult study because of the patient's factor and poor acoustic windows, repeat study with Definity contrast is recommended. 2. Mildly enlarged left atrium, normal left ventricular size, mild concentric left ventricular hypertrophy, probably preserved left ventricular systolic function, visually estimated ejection fraction of 55%, endocardial surfaces are very poorly visualized. Grade 1 diastolic dysfunction seen with tissue Doppler evidence of raised left atrial pressure. 3. Mild mitral and tricuspid regurgitation 4. No significant pericardial effusion noted.
== END 2018-03-26 16:00 | disposition home or self-care (01) ==
LOC: 2ND 13:48 → ER 13:48 → 2ND 16:32
PROVIDERS: ADMIT Emergency Medicine; ATTEND Emergency Medicine
CPT/HCPCS: 36415; 71010; 71045; 74176; 80048; 80076; 81001; 82962; 83690; 84484; 85025; 93005; 93017; 93306; 99284; G0378

== ENCOUNTER → 2018-04-17 09:05 | Outpatient (CLI) | payer MEDICARE, MEDICAID, SELFPAY ==
[2018-04-17 09:46] LABS: Blood Urea Nitrogen 14 mg/dL (7-18); Creatinine,Serum 1.06 mg/dL (0.70-1.30); Estimated Glomerular Filt Rate 76 ml/min (>60); GFR (African American) 92 ML/MIN (>60)
--- NOTE | 2018-04-17 09:54 | XR_ITS ---
EXAM: XR cervical spine min 6V HISTORY: Shakiness ITS.REASON: . ORDERING PHYSICIAN: Jae Mancera MD PATIENT AGE: 43 years COMPARISON: None FINDINGS: Normal alignment. No fracture or dislocation. No lytic or blastic change. There is mild degenerative disc disease at C5-C6 with small anterior osteophytes at C4-C5 and C5-C6. The foramina are widely patent. C6 and C7 are not well visualized. There is nuchal ligament calcification IMPRESSION: Mild cervical spondylosis, no acute finding
--- NOTE | 2018-04-17 09:54 | CT_ITS ---
CT angio chest HISTORY: Shortness of air and chest pain ITS.REASON: . ORDERING PHYSICIAN: Jae Mancera MD PATIENT AGE: 43 years COMPARISON: None TECHNIQUE: Axial images obtained following the administration of 75 mL of Isovue 370 . Sagittal, and coronal reformatted images are also generated and reviewed. All CT scans at the facility use one or more dose reduction, viz: automated exposure control, ma/kV adjustment per patient size (including targeted exams where dose is matched to indication, i.e. head), or iterative reconstruction technique. FINDINGS: No mediastinal or hilar mass is evident. No evidence of aortic aneurysm or dissection. No evidence of pulmonary embolus. There is a small amount of gas present in the mid and lower esophagus which may be related to reflux. The lungs are clear. No infiltrates or suspicious nodules evident. There is mild cardiomegaly. Upper abdominal images are unremarkable. There are mild degenerative changes in the thoracic spine IMPRESSION: No acute finding with no evidence of pulmonary embolus or aortic aneurysm.
== END ==
PROVIDERS: Visit Provider Internal Medicine
DX: R06.00 Dyspnea, unspecified (principal); R07.9 Chest pain, unspecified; R20.0 Anesthesia of skin
CPT/HCPCS: 36415; 71275; 72052; 82565; 84520; Q9967

== ENCOUNTER → 2018-06-18 20:07 | Outpatient (CLI) | payer MEDICARE, MEDICAID, SELFPAY | PROVIDERS: PCP Emergency Medicine; Visit Provider Emergency Medicine | DX: G47.33 Obstructive sleep apnea (adult) (pediatric) (principal); R40.0 Somnolence; R06.83 Snoring; E66.9 Obesity, unspecified | CPT/HCPCS: 95810 ==

== ENCOUNTER → 2018-08-17 10:18 | Outpatient (CLI) | payer MEDICARE, MEDICAID, SELFPAY ==
--- NOTE | 2018-08-17 10:21 | NVE_ITS ---
Venous Exam Indications: 729.81 Swelling of limb. IMPRESSIONS No evidence of deep or superficial vein thrombosis involving the veins of the right upper extremity Right upper extremity venous duplex. Doppler flow study including spectral analysis, color and navarrete scale imaging. Location: Vascular laboratory. Patient status: Outpatient. CRITICAL FINDINGS - Reported to: Dr Stone - 08/17/2018 - 10:40am - Neg for DVT Tables: Venous flow and imaging: + + + Location Flow properties + + + Right internal jugular Normal phasicity; spontaneous; compressible + + + Right subclavian Normal phasicity; spontaneous; normal augmentation; compressible + + + Right axillary Normal phasicity; spontaneous; normal augmentation; compressible + + + Right brachial Normal phasicity; spontaneous; normal augmentation; compressible + + + Right cephalic Normal phasicity; spontaneous; normal augmentation; compressible + + + Right basilic Normal phasicity; spontaneous; normal augmentation; compressible + + + Right radial Compressible + + + Right ulnar Compressible + + + Left subclavian Normal phasicity; spontaneous; normal augmentation; compressible + + + (Report amended ) Electronically signed by: Christian Villafana [id number]
--- NOTE | 2018-08-17 10:40 | XR_ITS ---
XR hand RT min 3V HISTORY: ITS.REASON: right hand pain/swelling ORDERING PHYSICIAN: Zahida Stone MD PATIENT AGE: 43 years COMPARISON: None FINDINGS: No obvious fracture or dislocation. The joint spaces are well-preserved. No bony erosive process evident at the joints. There is vague area of decreased attenuation involving the proximal shaft of the fifth medical carpal. There is some trabecular thickening also in this region. This is of questionable clinical significance. Consider follow-up to confirm stability. This could even represent an area of old fracture. IMPRESSION: 1. No acute finding. 2. Nonspecific lucency proximal shaft of the fifth metacarpal possibly due to an old fracture. Suggest follow-up in 2-3 months to confirm stability
== END ==
PROVIDERS: PCP Emergency Medicine; Visit Provider Specialist
DX: I82.621 Acute embolism and thrombosis of deep veins of right upper extremity (principal); M79.641 Pain in right hand; M79.89 Other specified soft tissue disorders; R20.0 Anesthesia of skin
CPT/HCPCS: 73130; 93971

== ENCOUNTER → 2018-08-19 13:17 | Outpatient (CLI) | payer MEDICARE, MEDICAID, SELFPAY ==
--- NOTE | 2018-08-19 13:22 | XR_ITS ---
XR wrist RT min 3V HISTORY posttraumatic pain ITS.REASON: right wrist pain, swelling, fall ORDERING PHYSICIAN: Zahida Stone MD PATIENT AGE: 43 years Comparison: None FINDINGS: No fracture or dislocation. No lytic or blastic change. There is normal mineralization.. The joint spaces are well-preserved. No significant degenerative/arthritic changes. No erosive changes evident.. IMPRESSION: Negative wrist
== END ==
PROVIDERS: PCP Emergency Medicine; Visit Provider Specialist
DX: M79.641 Pain in right hand (principal); M79.89 Other specified soft tissue disorders; R20.0 Anesthesia of skin
CPT/HCPCS: 73110

== ENCOUNTER → 2018-09-28 14:24 | Outpatient (POV) | payer MEDICARE, MEDICAID, SELFPAY | PROVIDERS: Visit Provider Specialist | DX: M79.641 Pain in right hand (principal); R20.0 Anesthesia of skin | CPT/HCPCS: 95886; 95908 ==

== ENCOUNTER → 2018-10-08 20:20 | Outpatient (CLI) | payer MEDICARE, MEDICAID, SELFPAY | PROVIDERS: PCP Emergency Medicine; Visit Provider Nurse Practitioner Family | DX: G47.33 Obstructive sleep apnea (adult) (pediatric) (principal); R07.9 Chest pain, unspecified; R06.02 Shortness of breath; R40.0 Somnolence | CPT/HCPCS: 95811 ==

== ENCOUNTER 2018-10-09 16:40 | Emergency (ER) | payer MEDICARE, MEDICAID, SELFPAY ==
[2018-10-09 16:47] VITALS: BP 130/79; PULSE 94; RESP 18; TEMP 36.8; O2SAT 99; BMI 43.9
--- NOTE | 2018-10-09 16:53 | HMH.EDGENADL ---
ED Disposition Clinical Impression: Suicidal ideation Disposition: Xfer Short-Term Hosp Condition on Discharge: Good Additional Instructions: pt transported by law enforcement Referrals: Provider,Referral, [Referring] - - Critical Care Critical Care Time: No Attestation: On 10/09/18, the high probability of a clinically significant, sudden or life threatening deterioration of the following system(s) required my full and direct attention, intervention and personal management. The time I documented below is in addition to time spent performing reported procedures but includes the following listed in this critical care notation. Medical Decision Making - Medical Records Medical records reviewed: Yes: I reviewed the patient's medical records. - Harry Inquiry Pt receiving controlled substance: No Vital Signs: 10/09/18 16:47 Temperature 98.2 F Temperature Source Oral Pulse Rate [Left Radial] 94 H Respiratory Rate 18 Blood Pressure [Right Arm] 130/79 Blood Pressure Mean [Right Arm] 96 Blood Pressure Source [Right Arm] Automatic Cuff Blood Pressure Position [Right Arm] Sitting 02 Sat by Pulse Oximetry 99 Oxygen Delivery Method Room Air - Lab Data Lab results reviewed: Yes: I reviewed the patient's lab results. Lab Results 10/09/18 17:00: Urine Opiates Screen Negative, Urine Methadone Screen Negative, Ur Barbituates Screen Negative, Ur Phencyclidine Scrn Negative, Ur Amphetamines Screen Negative, U Benzodiazepines Scrn Negative, Urine Cocaine Screen Negative, U Marijuana (THC) Screen Negative 10/09/18 17:31: WBC 8.3, RBC 5.17, Hgb 13.7 L, Hct 42.3, MCV 81.8, MCH 26.6 L, MCHC 32.5, RDW 14.3, Plt Count 340, MPV 6.7 L, Neut % (Auto) 67.9, Lymph % (Auto) 22.7, [place] % (Auto) 8.2, Eos % (Auto) 0.5, Baso % (Auto) 0.8, Neut # (Auto) 5.6, Lymph # (Auto) 1.9, [place] # (Auto) 0.7, Eos # (Auto) 0.0, Baso # (Auto) 0.1 10/09/18 17:31: Sodium 138, Potassium 3.8, Chloride 100, Carbon Dioxide 28, Anion Gap 13.8, BUN 16, Creatinine 1.23, Estimated Creat Clear 74, Estimated GFR 64, Est GFR ( Amer) 77, Glucose 133 H, Calcium 8.6, Total Bilirubin 0.2, AST 13 L, ALT 32, Alkaline Phosphatase 107, Total Protein 7.5, Albumin 3.4, Globulin 4.1 H, Albumin/Globulin Ratio 0.8 L, Salicylates 1.4 L, Plasma/Serum Alcohol 0 Result diagrams: 10/09/18 17:31 10/09/18 17:31 Orders (Tests/Meds): ORDERS Category Date Time Status ECG Request by /Nse Stat Y 10/09/18 16:58 Ordered - ECG Data Tracing #1 I reviewed this ECG and interpreted as documented below: Normal Sinus Rhythm: Yes (no stemi, normal QTc) Medical Decision Narrative: pt accepted by Dr Brown at [facility] for psych placement, vss General Adult HPI - General Stated complaint: psych Time Seen by Provider: 10/09/18 16:54 Source of Information: Patient - History of Present Illness HPI narrative: pt with suicidal ideation today, no attempt, no hallucinations, alert and oriented, speech fluent, good eye contact, no pain - Related Data Home Medications Medication Instructions Recorded Confirmed Albuterol Sulfate [Albuterol HFA 1 puff IH Q4HP PRN 03/25/18 09/28/18 Inhaler] Aspirin [Aspirin 81mg chewable 81 mg PO DAILY 03/25/18 09/28/18 tab] Atorvastatin Calcium [Lipitor 40mg 40 mg PO DAILY 03/25/18 09/28/18 Tablet] Cholecalciferol (Vitamin D3) 4,000 unit PO DAILY 03/25/18 09/28/18 [Vitamin D3] Insulin Aspart [Novolog Flexpen] 40 unit SQ TID 03/25/18 09/28/18 Insulin Glargine,Hum.rec.anlog 75 unit SQ HS 03/25/18 09/28/18 [Lantus Insulin 100units/mL 10mL vial] Losartan Potassium [Cozaar] 100 mg PO DAILY 03/25/18 09/28/18 Metformin HCl [Metformin ER 1,000 mg PO BID 03/25/18 09/28/18 Osmotic] Metoprolol Succinate [Toprol XL 50 mg PO DAILY 03/25/18 09/28/18 50mg Tablet] Montelukast Sodium [Montelukast 10 mg PO HS 03/25/18 09/28/18 10mg Tab] Pantoprazole Sodium [Protonix 40mg
--- NOTE | 2018-10-09 16:57 | ED_ITS ---
ED Disposition Clinical Impression: Suicidal ideation Disposition: Xfer Short-Term Hosp Condition on Discharge: Good Additional Instructions: pt transported by law enforcement Referrals: Provider,Referral, [Referring] - - Critical Care Critical Care Time: No Attestation: On 10/09/18, the high probability of a clinically significant, sudden or life threatening deterioration of the following system(s) required my full and direct attention, intervention and personal management. The time I documented below is in addition to time spent performing reported procedures but includes the following listed in this critical care notation. Medical Decision Making - Medical Records Medical records reviewed: Yes: I reviewed the patient's medical records. - Harry Inquiry Pt receiving controlled substance: No Vital Signs: 10/09/18 16:47 Temperature 98.2 F Temperature Source Oral Pulse Rate [Left Radial] 94 H Respiratory Rate 18 Blood Pressure [Right Arm] 130/79 Blood Pressure Mean [Right Arm] 96 Blood Pressure Source [Right Arm] Automatic Cuff Blood Pressure Position [Right Arm] Sitting 02 Sat by Pulse Oximetry 99 Oxygen Delivery Method Room Air - Lab Data Lab results reviewed: Yes: I reviewed the patient's lab results. Lab Results 10/09/18 17:00: Urine Opiates Screen Negative, Urine Methadone Screen Negative, Ur Barbituates Screen Negative, Ur Phencyclidine Scrn Negative, Ur Amphetamines Screen Negative, U Benzodiazepines Scrn Negative, Urine Cocaine Screen Negative, U Marijuana (THC) Screen Negative 10/09/18 17:31: WBC 8.3, RBC 5.17, Hgb 13.7 L, Hct 42.3, MCV 81.8, MCH 26.6 L, MCHC 32.5, RDW 14.3, Plt Count 340, MPV 6.7 L, Neut % (Auto) 67.9, Lymph % (Auto) 22.7, [place] % (Auto) 8.2, Eos % (Auto) 0.5, Baso % (Auto) 0.8, Neut # (Aut o) 5.6, Lymph # (Auto) 1.9, [place] # (Auto) 0.7, Eos # (Auto) 0.0, Baso # (Auto) 0.1 10/09/18 17:31: Sodium 138, Potassium 3.8, Chloride 100, Carbon Dioxide 28, Anion Gap 13.8, BUN 16, Creatinine 1.23, Estimated Creat Clear 74, Estimated GFR 64, Est GFR ( Amer) 77, Glucose 133 H, Calcium 8.6, Total Bilirubin 0.2, AST 13 L, ALT 32, Alkaline Phosphatase 107, Total Protein 7.5, Albumin 3.4, Globulin 4.1 H, Albumin/Globulin Ratio 0.8 L, Salicylates 1.4 L, Plasma/Serum Alcohol 0 Result diagrams: 10/09/18 17:31 10/09/18 17:31 Orders (Tests/Meds): ORDERS Category Date Time Status ECG Request by /Nse Stat Y 10/09/18 16:58 Ordered - ECG Data Tracing #1 I reviewed this ECG and interpreted as documented below: Normal Sinus Rhythm: Yes (no stemi, normal QTc) Medical Decision Narrative: pt accepted by Dr Brown at [facility] for psych placement, vss General Adult HPI - General Stated complaint: psych Time Seen by Provider: 10/09/18 16:54 Source of Information: Patient - History of Present Illness HPI narrative: pt with suicidal ideation today, no attempt, no hallucinations, alert and oriented, speech fluent, good eye contact, no pain - Related Data Home Medications Medication Instructions Recorded Confirmed Albuterol Sulfate [Albuterol HFA 1 puff IH Q4HP PRN 03/25/18 09/28/18 In
--- NOTE | 2018-10-09 17:17 | PC.NURSE ---
EMS BROUGHT PT FROM [facility] THAT IS A RESIDENT AT [facility] PT HAS BEEN HAVING SUCIDAL THOUGHTS ALL DAY , [facility] HAS ARRANGED A BED AT [facility] BUT EMS WAS NOT ABLE TO TRANSPORT TO [facility] I CALLED AND SPOKE WITH SANDY SHE ADVISED THEY WANTED US TO GO AHEAD AND CLEAR PT THEN HE WILL BE A DIRECT ADMIT . THEY HAVE SPOKE WITH HIS GUARDIAN AND AFTER HE IS CLEARED WE JUST NEED TO CALL REPORT . THE ACCEPTING IS DR FULTON . LAB HERE DRAWING LABS AT THIS TIME
[2018-10-09 17:22] LABS: Amphetamine/Metha Screen,Urine Negative ng/mL (<1000); Barbiturates Screen,Urine Negative ng/mL (<200); Benzodiazepines Screen,Urine Negative ng/mL (<200); Cannabinoid Screen,Urine Negative ng/mL (<50); Cocaine Screen,Urine Negative ng/mL (<300); Methadone Screen,Urine Negative ng/mL (<300); Opiate Screen,Urine Negative ng/mL (<300); Phencyclidine Screen,Urine Negative ng/mL (<25)
[2018-10-09 17:46] LABS: Basophils # 0.1 K/mm3 (0-0.2); Basophils % 0.8 % (0.1-2.0); Eosinophils % 0.5 % (0.1-12.0); Hematocrit 42.3 % (42.0-52.0); Hemoglobin 13.7 g/dL (14.1-18.0); Lymphocytes # 1.9 K/mm3 (0.7-4.5); Lymphocytes % 22.7 % (10-50); Mean Corpuscular HGB Conc 32.5 g/dL (31.8-35.4); Mean Corpuscular Hemoglobin 26.6 pg (27.0-31.2); Mean Corpuscular Volume 81.8 fl (80-94); Mean Platelet Volume 6.7 fl (7.4-10.4); Monocytes # 0.7 K/mm3 (0.1-1.0); Monocytes % 8.2 % (1.7-9.3); Neutrophils # 5.6 K/mm3 (1.8-7.8); Neutrophils % 67.9 % (37.0-80.0); Platelet Count 340 K/mm3 (142-424); Red Blood Count 5.17 M/mm3 (4.60-6.20); Red Cell Distribution Width 14.3 % (11.5-17.5); White Blood Count 8.3 K/mm3 (4.8-10.8)
[2018-10-09 18:17] LABS: Alanine Aminotransferase 32 U/L (12-78); Albumin Level 3.4 gm/dL (3.4-5.0); Albumin/Globulin Ratio 0.8 (1.1-1.8); Alkaline Phosphatase 107 U/L (46-116); Anion Gap 13.8 mEq/L (5-15); Aspartate Amino Transferase 13 U/L (15-37); Bilirubin,Total 0.2 mg/dL (0.2-1.0); Blood Urea Nitrogen 16 mg/dL (7-18); Calcium 8.6 mg/dL (8.5-10.1); Carbon Dioxide 28 mmol/L (21.0-32.0); Chloride 100 mmol/L (98-107); Creatinine Clearance Estimated 74 mL/min (50-200); Creatinine,Serum 1.23 mg/dL (0.70-1.30); Estimated Glomerular Filt Rate 64 ml/min (>60); GFR (African American) 77 ML/MIN (>60); Globulin 4.1 gm/dl (1.3-3.2); Glucose 133 mg/dL (74-106); Potassium 3.8 mmoL/L (3.5-5.1); Salicylate 1.4 mg/dL (2.8-20.0); Sodium 138 mmol/L (136-145); Total Protein,Serum 7.5 gm/dL (6.4-8.2)
[2018-10-09 18:23] LABS: Ethyl Alcohol 0 mg/dL (0-99)
[2018-10-09 18:46] VITALS: BP 138/77; PULSE 91; RESP 16; TEMP 36.7; O2SAT 100
[2018-10-09 18:52] LABS: Appearance,Urine CLEAR (Clear); Bilirubin,Urine Negative (Negative); Blood, Urine Negative (Negative); Color,Urine YELLOW (Yellow); Glucose,Urine (UA) 3+ (Negative); Ketones,Urine Negative (Negative); Leukocyte Esterase,Urine Negative (Negative); Microscopic, Urine URINE MICROSCOPIC (MICROSCOPIC); Nitrate,Urine Negative (Negative); Protein,Urine 1+ (Negative); Urobilinogen,Urine 0.2 EU/dl (0.2)
[2018-10-09 18:56] LABS: Amorphous Sediment,Urine Trace /lpf; Mucus,Urine 4+ /lpf; Sperm,Urine 1+ /lpf
== END 2018-10-09 18:48 | disposition short-term general hospital (02) ==
PROVIDERS: Emergency Provider Emergency Medicine Emergency Medical Services; PCP Emergency Medicine
DX: R45.851 Suicidal ideations (principal); F32.9 Major depressive disorder, single episode, unspecified; E11.9 Type 2 diabetes mellitus without complications; J45.909 Unspecified asthma, uncomplicated; E78.5 Hyperlipidemia, unspecified; I10 Essential (primary) hypertension; R56.9 Unspecified convulsions; Z88.8 Allergy status to other drugs, medicaments and biological substances; Z79.899 Other long term (current) drug therapy
CPT/HCPCS: 80053; 80305; 80329; 81001; 85025; 93005; 99282

== ENCOUNTER 2018-12-08 11:00 | Outpatient (RCR) | payer MEDICARE, MEDICAID, SELFPAY ==
--- NOTE | 2019-03-04 11:14 | HMH.OTOPEV ---
OT Inpatient Evaluation Rehab OT Outpatient Eval Start: 10/20/18 13:47 Freq: Status: Discharge Protocol: Document 10/20/18 13:47 TFRY (Rec: 10/20/18 14:00 TFRY [id number]) Electronically Signed By Brii Snell, OT 10/20/18 13:47 Outpatient Therapy Subjective History Subjective History This is a 43 year old right handed male referred to occupational therapy evaluation for carpal tunnel syndrome. Patient reports initially injurying his wrist approximately 1 year ago when he attempted to lift a treadmill. Chief Complaint Pain Symptom Type Numbness Symptoms Relieved By Nothing Symptoms Aggravated By Physical Activity Prior Functional Limitations None Current Functional Limitations Sleeping Symptom Description Constant but Variable Level of pain today (0-10) 3 Pain scale - at its best (0-10) 2 Pain scale - at its worst (0-10) 10 Wrist/Hand Eval Wrist Range of Motion Right Wrist ROM Reason Not Measured Within Functional Limits Wrist Manual Muscle Testing Right Wrist Extension Strength Grade 3+ Fair+ Wrist Flexion Strength Grade 4- Good- Wrist Radial Deviation Strength Grade 3+ Fair+ Wrist Ulnar Deviation Strength Grade 3+ Fair+ 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 Strength Measurement (lbs) 38 Palmar Pinch (3-point) Ability Normal Performance Palmar Pinch (3-point) Strength 8 Measurement (lbs) Tip Pinch (2-point) Ability Normal Performance Tip Pinch (2-point) Strength Measurement 6 (lbs) Lateral Pinch Ability Normal Performance Lateral Pinch Strength Measurement (lbs) 12 OT Outpatient Assessment Impairments Problems/Impairments Impaired Strength,Subjective C /O Pain Prognosis Rehab Potential Fair Clinical Impression Consistent with Diagnosis Yes Short Term Goals Number of Weeks 2 Increase Strength Yes: right wrist strength - 4/ 5; 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
--- NOTE | 2019-03-04 11:14 | HMH.RHREAS ---
Rehab Reassessment Rehab OP Re-assessment Start: 11/23/18 14:51 Freq: Status: Discharge Protocol: Document 11/23/18 14:51 TFRY (Rec: 11/23/18 15:19 TFRY [id number]) Electronically Signed By Brii Snell OT 11/23/18 14:51 Rehab Re-assessment Subjective Subjective My pain is a 4. Objective Objective Notes Patient seen this date for skilled occupational therapy services. See exercise flow sheet for exercises. Reassessment of right wrist. Right wrist strength 4/5 throughout. 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 Pain is a 4 on average in right wrist per patient report. Assessment Progress Assessment Progressing as Expected Assessment Notes Patient making progress with strength in wrist and hand. Patient goals met STG's - 4/5 LTG's - 2/4 Goals Not Met pain Plan Plan Continue working on unmet goals. Frequency of Therapy 1-2x per week Duration of therapy 3 weeks Time and Billing Re-Eval Time 5 Re-Eval Billing Units 0 PHYSICIAN CERTIFICATION: I certify the specified therapy services for Claus Ramos are required, authorized, and reviewed every 30 days.
== END 2018-12-08 11:05 | disposition home or self-care (01) ==
LOC: OT 11:00
PROVIDERS: Visit Provider Specialist
DX: G56.01 Carpal tunnel syndrome, right upper limb (principal); R20.0 Anesthesia of skin
CPT/HCPCS: 97110; 97164; 97165